=== PATIENT | male | born 2000 | race African-American/Black ===

== ENCOUNTER 2022-06-22 23:37 | Emergency (ER) | payer SELFPAY ==
[2022-06-22] MEDS ORDERED: prednisoLONE 15 MG/5 ML UDCUP ONE (23:58)
== END 2022-06-23 00:16 | disposition home or self-care (01) ==
LOC: MADERS 23:37
DX: J45.901 Unspecified asthma with (acute) exacerbation (principal)
CPT/HCPCS: J7510; J7620